=== PATIENT | female | born 1960 | race Caucasian/White ===

== ENCOUNTER → 2017-10-05 | Outpatient (CLI) | payer OTHER ==
--- NOTE | 2017-10-05 12:56 | REP ---
Clinical: Acute lower back pain. Technique: Upright AP, lateral, oblique views. Comparison: 02/03/2009. Findings: Alignment and lordosis maintained. No acute fracture / compression injury or subluxation. Moderate progressive multilevel degenerative changes include marginal spurring/osteophyte formation, endplate sclerosis and disc space narrowing primarily at the L5-S1, L3-L4, and L4-L5 levels. Impression: Moderate multilevel degenerative changes progressed from 2008. Signed by Vlad Interiano MD 10/05/2017 12:49 P
== END ==
LOC: M RAD 12:18
PROVIDERS: ATTEND Chiropractor
DX: M54.5 Low back pain (principal)

== ENCOUNTER 2018-01-25 13:30 | Emergency (ER) | payer OTHER ==
[2018-01-25] MEDS: METOCLOPRAMIDE INJ 10MG/2ML VIAL (J2765) IV (14:25)
[2018-01-25] MEDS: KETOROLAC 30 MG/ML VIAL (J1885) IV (14:26)
== END 2018-01-25 15:29 | disposition home or self-care (01) ==
LOC: M ED 13:30
DX: G43.909 Migraine, unspecified, not intractable, without status migrainosus (principal); Z88.0 Allergy status to penicillin; Z88.1 Allergy status to other antibiotic agents
CPT/HCPCS: J1885

== ENCOUNTER → 2018-03-10 | Outpatient (REF) | payer OTHER | LOC: M LAB REF 09:55 | DX: H02.831 Dermatochalasis of right upper eyelid (principal); H02.834 Dermatochalasis of left upper eyelid ==

== ENCOUNTER 2018-03-12 18:34 | Emergency (ER) | payer OTHER ==
[2018-03-12] MEDS: diphenhydrAMINE INJ 50MG/ML VIAL (J1200) IV (19:56)
[2018-03-12] MEDS: FAMOTIDINE INJ 20MG/2ML VIAL (S0028) IVP (19:59)
== END 2018-03-12 22:32 | disposition home or self-care (01) ==
LOC: M ED 18:34
DX: R22.0 Localized swelling, mass and lump, head (principal); G43.909 Migraine, unspecified, not intractable, without status migrainosus; F32.9 Major depressive disorder, single episode, unspecified; Z79.899 Other long term (current) drug therapy
CPT/HCPCS: J1200

== ENCOUNTER → 2018-04-17 | Outpatient (CLI) | payer OTHER | LOC: M WUC 16:22 | DX: M25.531 Pain in right wrist (principal) | CPT/HCPCS: 73110 ==

== ENCOUNTER → 2018-07-20 | Outpatient (REF) | payer OTHER | LOC: M LAB REF 17:50 | DX: R30.0 Dysuria (principal) ==

== ENCOUNTER → 2018-09-10 | Outpatient (REF) | payer OTHER ==
[2018-09-10 21:15] LABS: CHLAMYDIA DNA AMPLIFICATION NEGATIVE (NEGATIVE); GC DNA AMPLIFICATION NEGATIVE (NEGATIVE)
== END ==
LOC: M LAB REF 16:14
DX: R30.0 Dysuria (principal)

== ENCOUNTER 2019-09-20 09:10 | Emergency (ER) | payer OTHER ==
[~2019-09-20] VITALS: Ht 165.1 cm; Wt 97.3 kg
[~2019-09-20 09:10] MED LIST: AZO95TAB PO; BACIOIN5 TOP; SUMA50TA2
[2019-09-20] MEDS ORDERED: NS 1,000 ML IV ONE (10:00)
[2019-09-20] MEDS ORDERED: KETOROLAC 30 MG/ML VIAL (J1885) IV ONE (10:00)
[2019-09-20] MEDS ORDERED: diphenhydrAMINE INJ 50MG/ML VIAL (J1200) IV ONE (10:00)
[2019-09-20] MEDS ORDERED: ONDANSETRON 4MG/2ML VIAL (J2405) IV ONE (10:00)
[2019-09-20 10:37] LABS: BASO # 0.1 10^3/uL (0.0-0.2); BASO % 0.8 % (0.0-1.0); EOS # 0.2 10^3/uL (0.0-0.5); EOS % 2.3 % (0.0-3.0); HEMOGLOBIN 14.5 g/dl (12.0-15.5); LYMPH # 2.7 10^3/uL (1.5-5.0); LYMPH % 33.8 % (24.0-44.0); MEAN CORPUSCULAR HEMOGLOBIN 29.5 pg (27.0-33.0); MEAN CORPUSCULAR HGB CONC 32.2 g/dl (32.0-36.5); MEAN CORPUSCULAR VOLUME 91.6 fl (80.0-96.0); MONO # 0.6 10^3/uL (0.0-0.8); MONO % 7.9 % (0.0-5.0); NEUTROPHILS # 4.3 10^3/uL (1.5-8.5); NEUTROPHILS % 54.9 % (36.0-66.0); PLATELET COUNT, AUTOMATED 216 10^3/uL (150-450); RED BLOOD COUNT 4.91 10^6/uL (4.00-5.40); WHITE BLOOD COUNT 7.8 10^3/uL (4.0-10.0)
[2019-09-20 11:03] LABS: ALBUMIN 3.7 GM/DL (3.2-5.2); ALT/SGPT 29 U/L (12-78); BILIRUBIN,DIRECT < 0.1 MG/DL (0.0-0.2); BILIRUBIN,TOTAL 0.3 MG/DL (0.2-1.0); BLOOD UREA NITROGEN 13 MG/DL (7-18); CALCIUM LEVEL 9.4 MG/DL (8.5-10.1); CARBON DIOXIDE LEVEL 27 MEQ/L (21-32); CHLORIDE LEVEL 109 MEQ/L (98-107); CK-MB VALUE MASS 1.8 NG/ML (<3.6); CPK CREATINE PHOSPHOKINASE 120 U/L (26-192); CREATININE FOR GFR 0.79 MG/DL (0.55-1.30); GLOMERULAR FILTRATION RATE > 60.0 (>51); GLUCOSE, FASTING 98 MG/DL (70-100); MAGNESIUM LEVEL 1.8 MG/DL (1.8-2.4); POTASSIUM SERUM 4.4 MEQ/L (3.5-5.1); SODIUM LEVEL 143 MEQ/L (136-145); TOTAL PROTEIN 7.2 GM/DL (6.4-8.2); TROPONIN I < 0.02 NG/ML (< 0.10)
[2019-09-20 12:16] VITALS: BP 145/73
--- NOTE | 2019-09-20 18:30 | ECGEPIP ---
[facility] - ED Test Date: 2019-09-20 Pat Name: MELISA CALDERÓN Department: Room: - Gender: Female [employer]: : [id number] Requested By: LONA HUNTER PA-C Order Number: [id number] Reading MD: Cailin Nowak Measurements Intervals [place] Rate: 70 P: 22 ID: [id number] QRS: 18 QRSD: 84 T: 52 QT: 375 QTc: 407 Interpretive Statements SINUS RHYTHM NO PRIOR Electronically Signed on 09-20-2019 18:30:15 EST by Cailin Nowak
== END 2019-09-20 12:29 | disposition home or self-care (01) ==
LOC: EDSEX 09:10 → M ED 09:10 → EDBD 09:10 → M ED 12:29
DX: G43.909 Migraine, unspecified, not intractable, without status migrainosus (principal); M54.9 Dorsalgia, unspecified; F32.9 Major depressive disorder, single episode, unspecified; Z79.899 Other long term (current) drug therapy; Z88.0 Allergy status to penicillin; Z88.8 Allergy status to other drugs, medicaments and biological substances
CPT/HCPCS: 80048; 80076; 82550; 82553; 83735; 84484; 85025; 93005; 96361; 96374; 96375; 99285; J1200; J1885; J2405

== ENCOUNTER → 2020-08-12 | Outpatient (CLI) | payer OTHER ==
--- NOTE | 2020-08-15 16:03 | REPMRS ---
Patient History The patient states she has not had a clinical breast exam in over a year. Family history of breast cancer at age 60 in maternal aunt, breast cancer at age 60 in paternal aunt. 3D TOMOSYNTHESIS WAS PERFORMED. [facility].5%. CHRISTIANO Miranda. Digital Woman Screen Mammo: August 12, 2020 - Exam #: [id number] Bilateral CC and MLO view(s) were taken. Technologist: Ida Jay Technologist FINDINGS: There are scattered fibroglandular densities. There has been no change in the appearance of the mammogram from the prior studies. There is a mild amount of residual fibroglandular tissue which is fairly symmetric. There is no interval development of dominant mass, architectural distortion, or clustered microcalcification suggestive of malignancy. Assessment: BI-RADS/ACR category 1 mammogram. Negative Mammogram. Recommendation Routine screening mammogram in 1 year (for women over age 40). This mammogram was interpreted with the aid of an FDA-approved computer-aided dectection system. Electronically Signed By: Joshua Ndiaye MD 08/15/20 [id number]
== END ==
LOC: M WHC 07:32
PROVIDERS: ATTEND Family Medicine
DX: Z12.31 Encounter for screening mammogram for malignant neoplasm of breast (principal)

== ENCOUNTER → 2021-08-13 | Outpatient (REF) | payer OTHER | LOC: M LAB REF 21:32 | PROVIDERS: ATTEND Physician Assistant | DX: R30.0 Dysuria (principal) ==

== ENCOUNTER 2023-04-20 09:33 | Emergency (ER) | payer OTHER ==
[~2023-04-20] VITALS: Ht 154.9 cm; Wt 101.8 kg
[~2023-04-20 09:33] MED LIST changes: +ALLO100T PO; +BUPR150T12 PO; +CIPR500T39 PO; +SUMA25TA3 PO; +VANC125C3 PO
[2023-04-20] MEDS ORDERED: ASPIRIN 81MG CHEW TABLET PO ONE (10:05)
[2023-04-20] MEDS ORDERED: NITROGLYCERIN 0.4MG SUBL TABLET SL PRN (10:05)
[2023-04-20 10:08] VITALS: BP 187/91
[2023-04-20 10:15] LABS: BASO # 0.1 10^3/uL (0.0-0.2); BASO % 0.6 % (0.0-1.0); EOS # 0.2 10^3/uL (0.0-0.5); EOS % 1.8 % (0.0-3.0); HEMATOCRIT 46.4 % (36.0-47.0); HEMOGLOBIN 15.4 g/dl (12.0-15.5); LYMPH # 3.1 10^3/uL (1.5-5.0); LYMPH % 32.6 % (24.0-44.0); MEAN CORPUSCULAR HEMOGLOBIN 29.6 pg (27.0-33.0); MEAN CORPUSCULAR HGB CONC 33.2 g/dl (32.0-36.5); MEAN CORPUSCULAR VOLUME 89.2 fl (80.0-96.0); MONO # 0.7 10^3/uL (0.0-0.8); MONO % 7.3 % (2.0-8.0); NEUTROPHILS # 5.4 10^3/uL (1.5-8.5); NEUTROPHILS % 57.5 % (36.0-66.0); PLATELET COUNT, AUTOMATED 265 10^3/uL (150-450); WHITE BLOOD COUNT 9.5 10^3/uL (4.0-10.0)
[2023-04-20 10:37] LABS: CK-MB VALUE MASS 2.1 NG/ML (<3.6); LIPASE 29 U/L (12-53)
[2023-04-20 10:39] LABS: ALBUMIN 4.1 G/DL (3.2-5.2); ALKALINE PHOSPHATASE 88 U/L (46-116); ALT/SGPT 45 U/L (7.0-40); AST/SGOT 35 U/L (<34); BILIRUBIN,DIRECT < 0.1 MG/DL (<0.4); BILIRUBIN,TOTAL 0.4 MG/DL (0.3-1.2); BLOOD UREA NITROGEN 14 MG/DL (9-23); CARBON DIOXIDE LEVEL 30 MMOL/L (20-31); CHLORIDE LEVEL 103 MMOL/L (98-107); CREATININE FOR GFR 0.88 MG/DL (0.55-1.30); GLOMERULAR FILTRATION RATE > 60.0 (>45); GLUCOSE, FASTING 145 MG/DL (74-106); POTASSIUM SERUM 4.1 MMOL/L (3.5-5.1); SODIUM LEVEL 139 MMOL/L (136-145); TOTAL PROTEIN 7.4 G/DL (5.7-8.2)
[2023-04-20 10:41] LABS: FREE T4 0.79 NG/DL (0.89-1.76); THYROID STIMULATING HORMONE 2.708 uIU/ML (0.55-4.78)
[2023-04-20 10:43] LABS: CPK CREATINE PHOSPHOKINASE 144 U/L (34-145); MB/CK RELATIVE INDEX 1.45 (< OR =4)
[2023-04-20] MEDS ORDERED: ISOVUE-370 76% 100ML VIAL As Ordered ONE (11:03)
[2023-04-20 11:57] LABS: CK-MB VALUE MASS 1.9 NG/ML (<3.6)
[2023-04-20 12:06] LABS: MB/CK RELATIVE INDEX 1.5 (< OR =4)
[2023-04-20 14:07] LABS: CK-MB VALUE MASS 1.4 NG/ML (<3.6)
[2023-04-20 14:10] LABS: MB/CK RELATIVE INDEX 1.21 (< OR =4)
[2023-04-20 14:39] VITALS: BP 192/83; TEMP 97.2; O2SAT 99
== END 2023-04-20 15:01 | disposition home or self-care (01) ==
LOC: M ED 09:33
DX: R07.9 Chest pain, unspecified (principal); F32.A Depression, unspecified; Z82.49 Family history of ischemic heart disease and other diseases of the circulatory system; R16.0 Hepatomegaly, not elsewhere classified; K76.0 Fatty (change of) liver, not elsewhere classified; Z79.899 Other long term (current) drug therapy; Z88.0 Allergy status to penicillin; Z88.5 Allergy status to narcotic agent; Z88.8 Allergy status to other drugs, medicaments and biological substances
CPT/HCPCS: 71045; 71275; 80048; 80076; 82550; 82553; 83690; 84439; 84443; 84484; 85025; 93005; 93041; 94760; 99284; Q9967

== ENCOUNTER 2023-05-23 07:32 | Emergency (ER) | payer OTHER ==
[~2023-05-23] VITALS: Ht 162.6 cm; Wt 101.2 kg
[2023-05-23 07:33] VITALS: BP 140/87; TEMP 98.4; O2SAT 97
[2023-05-23] MEDS ORDERED: ALBU90AE (07:43)
[2023-05-23] MEDS ORDERED: DOXY-443 PO (08:30)
== END 2023-05-23 08:56 | disposition home or self-care (01) ==
LOC: M ED 07:32
DX: S00.212A Abrasion of left eyelid and periocular area, initial encounter (principal); Z88.0 Allergy status to penicillin; Z88.5 Allergy status to narcotic agent; Z79.899 Other long term (current) drug therapy